=== PATIENT | male | born 1935 | race Caucasian/White ===

== ENCOUNTER → 2016-07-27 | Day surgery (SDC) | payer OTHER ==
[2016-07-11 11:11] VITALS: BMI 24.0
--- NOTE | 2016-07-11 11:41 | PAT Medication Instructions ---
Service Date July 11, 2016. Current Home Medication List Allopurinol (Zyloprim), 100 MG PO BID Atorvastatin (Lipitor), 10 MG PO QAM Medication Instructions For Your Scheduled Surgery - Take the following medications the morning of surgery with a sip of water: Allopurinol (Zyloprim), 100 MG PO BID Atorvastatin (Lipitor), 10 MG PO QAM - Take the following medications as scheduled the night before surgery: Allopurinol (Zyloprim), 100 MG PO BID If you have any questions please call us at [phone] or [phone] or [phone]
[~2016-07-27] VITALS: Ht 175.3 cm; Wt 74.0 kg
[~2016-07-27] MED LIST: ACETAMINOPHEN 325 MG TAB PO PRN; ALLO100T PO; ATOR10TA82 PO; ATROPINE SULFATE 0.1 MG/ML 5ML SYR IV PRN; BACITRACIN OINT 15 GM TUBE ONE; BUPIVACAINE 0.5 % 5 MG/1 ML MPF 30ML VIAL ONE; CLINDAMYCIN 600 MG/54 ML D5W IV ONE; CLINDAMYCIN 600 MG/54 ML D5W IV SCH; D5NSS + 20MEQ KCL 1,000 ML IV SCH; DEXAMETHASONE SOD INJ 4 MG/ML VIAL ONE; EpHEDrine SULFATE INJ 50 MG/ML AMP IV PRN; FENTANYL CITRATE INJ 50 MCG/1 ML 2 ML VIAL ONE; HYDROmorphone INJ 1 MG/ML SYR IV PRN; LACTATED RINGER'S 1000ML 1,000 ML IV SCH; LIDOCAINE HCL 1% 20 ML VIAL ONE; LIDOCAINE HCL 2% 2 ML VIAL (20MG/ML) ONE; ONDANSETRON INJ 2 MG/ML 2 ML VIAL IV PRN; ONDANSETRON INJ 2 MG/ML 2 ML VIAL ONE; OXYC-57 PO; OXYCODONE/ACETAMINOPHEN 5-325 TAB PO PRN; PROPOFOL IV EMULSION 10 MG/ML 20 ML VIAL IV ONE
[2016-07-27 11:55] VITALS: BP 153/75; PULSE 67; TEMP 37.2; O2SAT 96; Ht 175.3 cm; Wt 74.0 kg
--- NOTE | 2016-07-27 12:24 | History & Physical Bridge Note ---
H&P Re-Evaluation Bridge Note: I have examined the patient, reviewed the History & Physical and in the interval since the performance of the History & Physical I have noted the following changes of clinical significance: No changes noted
--- NOTE | 2016-07-27 13:59 | [facility] Post Operative Brief Note ---
Immediate Operative Summary Operative Date July 27, 2016. Pre-Operative Diagnosis Right Inguinal Hernia Post-Operative Diagnosis Right Inguinal Hernia Procedure(s) Performed Right Open Inguinal Hernia Repair with Mesh Surgeon Dr. Dickerson Architect Manager Surgeon(s) surgical instrument repair specialist Estimated Blood Loss 5 ml Findings right indirct inguinal hernia Fluids (cc crystalloids) 400ml Specimens none per surgeon Drains none Anesthesia LMA + local Complication(s) None Disposition Recovery Room / PACU
--- NOTE | 2016-07-27 14:09 | Discharge Instructions ---
Discharge Instructions Date of Service July 27, 2016. Visit Reason for Visit: Right Inguinal Hernia Discharge Discharge Diagnosis / Problem: S/P repair right inguinal hernia with mesh Discharge Goals Goal(s): Decrease discomfort, Improve nutritional status Activity Recommendations Activity Limitations: per Instructions/Follow-up section Lifting Limitations: no more than 25 pounds Exercise/Sports Limitations: gradually increase as tolerated May Resume Sexual Activity: when tolerated Shower/Bathe: may shower/bathe in 3 days Driving or Machine Use: resume 3 days after discharge Anesthesia . Post Anesthesia Instructions: If you have had General Anesthesia or IV Sedation: * Do not drive today. * Resume driving when surgeon permits. * Do not make important decisions or sign legal documents today. * Call surgeon for: 1. Temperature elevations greater than 101 degrees F. 2. Uncontrollable pain. 3. Excessive bleeding. 4. Persistent nausea and vomiting. 5. Medication intolerance (nausea, vomiting or rash). * For nausea and vomiting use only clear liquids such as: tea, soda, bouillon until nausea subsides, then gradually increase diet as tolerated. * If you have any concerns or questions, call your surgeon's office. If physician is unavailable and it is an emergency, call 911 or go to the nearest emergency room. . Instructions / Follow-Up Instructions / Follow-Up keep the dressing on for 4 days, he can take a shower on 07/31/2016, no driving while taking pain medicine, no heavy lifting >20 LBS for 4 weeks, follow up 1 week, Diet Recommendations Recommended Home Diet: resume previous diet Procedures Procedures Performed: Right Open Inguinal Hernia Repair with Mesh Pending Studies Studies pending at discharge: no Medical Emergencies . Who to Call and When: Medical Emergencies: If at any time you feel your situation is an emergency, please call 911 immediately. . Non-Emergent Contact Non-Emergency issues call your: Surgeon Call Non-Emergent contact if: you have a fever, temperature is above 100.5, your pain is not controlled, your pain is worsening, wound has increased drainage, wound has increased redness . . "Provider Documentation" section prepared by Laurel Dickerson. . [place] Drug Monitoring Program Search Results: no issues identified
--- NOTE | 2016-07-27 14:26 | Anesthesiology Progress Note ---
Anesthesia Post Op Note Date & Time July 27, 2016 at 14:26 Vital Signs Pain Intensity: 0 Vital Signs Past 12 Hours Date Time Temp Pulse Resp B/P Pulse Ox O2 Delivery O2 Flow Rate FiO2 07/27/16 14:15 65 18 174/77 95 Room Air 07/27/16 14:05 62 18 174/86 100 Mask 10 07/27/16 13:55 62 18 169/83 100 Mask 10 07/27/16 13:48 37.2 63 18 179/82 98 Mask 10 07/27/16 11:55 37.2 67 20 153/75 96 Room Air Notes Mental Status: alert / awake / arousable, participated in evaluation Pt Amnestic to Procedure: Yes Nausea / Vomiting: adequately controlled Pain: adequately controlled Airway Patency, RR, SpO2: stable & adequate BP & HR: stable & adequate Hydration State: stable & adequate Anesthetic Complications: no major complications apparent
[2016-07-27 14:35] VITALS: BP 177/83; PULSE 64; TEMP 36.6; O2SAT 95
--- NOTE | 2016-07-27 14:42 | OPERATIVE REPORT ---
DATE OF OPERATION: 07/27/2016 PREOPERATIVE DIAGNOSIS: Right inguinal hernia. POSTOPERATIVE DIAGNOSIS: Same. PROCEDURE: Open repair of right inguinal hernia with mesh. SURGEON: Dr. Laurel Dickerson. ANESTHESIA: LMA plus local. ESTIMATED BLOOD LOSS: About 5 mL. FINDINGS: Right indirect inguinal hernia. IV FLUIDS: 400 mL. COMPLICATIONS: None. INDICATIONS FOR THE PROCEDURE: This is an 81-year-old gentleman who presented symptomatic right inguinal hernia bulging pain and patient required to do open repair right inguinal hernia with mesh. I did talk to the patient about the benefit and risk, alternate procedure. I indicated the risks may include but not limited such as bleeding, infection, recurrence, may need more procedure, chronic incision pain, DVT, myocardial infarction and even . The patient and patient's understands. Patient signed informed consent and I answered all questions. DETAILS OF PROCEDURE: We brought the patient to the OR, put the patient in the supine position. The patient received SCD on bilateral legs to prevent DVT. Also, patient received 600 mg of clindamycin IV for prophylactic antibiotic. The patient received LMA by anesthesiology. The patient's abdomen was prepped and draped in routine sterile fashion. After a timeout, I injected local anesthesia by using 0.5% lidocaine mixed with 0.25% Marcaine around the right inguinal area. Then I made about 3 cm incision on the right inguinal area, exposed the external oblique and then opened the external oblique and to the external ring and then we mobilized the cord structure, put a Trixie and then we found the patient had an indirect hernia. Hernia sac was mobilized and then the hernia sac was reduced in the abdominal cavity. Then I chose to use the large plug to defect of the hernia opening and then chose another 3 x 5 cm mesh to reinforce the posterior wall. I used 2-0 Prolene mesh to the conjoined tendon medial and lateral side I used 2-0 Prolene mesh to the inguinal ligament, 2 sutures meeting together and tied and created another new internal ring. Hemostasis obtained. Then I used 2-0 Vicryl, closed the external fascia continuous running, closed the subcutaneous layer by using 2-0 Vicryl continuous running, closed skin by using 4-0 Vicryl and then we put the dressing on. The patient tolerated the procedure well. After the procedure, the patient transferred to recovery room in stable condition. All needle, sponge count correct x2 at the end of case. After the procedure and before procedure, I did talk to the patient's family member. I gave them the postop care instruction. Also, after the procedure, I did talk to the patient and about the OR finding and procedure we did. She understands. I attest to the content of the Intraoperative Record and any orders documented therein. Any exceptions are noted below. [id number]
[2016-07-27 15:05] VITALS: BP 189/88; PULSE 64; TEMP 36.6; O2SAT 96
[2016-07-27 15:30] VITALS: BP 188/78; PULSE 65; TEMP 36.8; O2SAT 97
[2016-07-27 16:15] VITALS: BP 154/79; PULSE 65; TEMP 36.8; O2SAT 97
== END | disposition home or self-care (01) ==
LOC: EEVIPCON 11:35 → C.ACU 11:35
PROVIDERS: ATTEND Surgery
DX: K40.90 Unilateral inguinal hernia, without obstruction or gangrene, not specified as recurrent (principal); N18.3 Chronic kidney disease, stage 3 (moderate); I35.1 Nonrheumatic aortic (valve) insufficiency; E78.5 Hyperlipidemia, unspecified; M35.3 Polymyalgia rheumatica; M10.9 Gout, unspecified; Z79.899 Other long term (current) drug therapy